=== PATIENT | female | born 1995 | race Caucasian/White ===

== ENCOUNTER 2021-07-25 17:24 | Emergency (ER) | payer BC ==
[~2021-07-25] VITALS: Ht 165.1 cm; Wt 72.6 kg
[2021-07-25] MEDS ORDERED: VENTOLIN HFA18 GM INH (18:22)
[2021-07-25] MEDS ORDERED: ONDANSETRON ODT4 MG PO (20:41)
== END 2021-07-25 21:05 | disposition home or self-care (01) ==
LOC: ED 17:24
DX: K92.0 Hematemesis (principal); J45.909 Unspecified asthma, uncomplicated
CPT/HCPCS: 36415; 43752; 80048; 85025; 85610; 85730; 99284-25; A9270; C9113; J2405; J7030

== ENCOUNTER 2021-08-03 13:20 | Emergency (ER) | payer BC ==
[~2021-08-03] VITALS: Ht 165.1 cm; Wt 80.7 kg
[~2021-08-03 13:20] MED LIST: ONDANSETRON ODT4 MG PO; VENTOLIN HFA18 GM INH
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
[2021-08-03] MEDS ORDERED: PROMETHAZINE HC25 M1 PO (13:48)
[2021-08-03] MEDS ORDERED: REGLAN10 MG PO (15:32)
[2021-08-03] MEDS ORDERED: PROMETHAZINE HC25 MG PR (15:32)
== END 2021-08-03 15:53 | disposition home or self-care (01) ==
LOC: ED 13:20
DX: O21.9 Vomiting of pregnancy, unspecified (principal); O99.511 Diseases of the respiratory system complicating pregnancy, first trimester; J45.909 Unspecified asthma, uncomplicated; Z3A.01 Less than 8 weeks gestation of pregnancy
CPT/HCPCS: 36415; 80053; 81001; 85025; 96374; 99284-25; J2765; J7030

== ENCOUNTER 2021-08-14 16:35 | Emergency (ER) | payer OTHER ==
[~2021-08-14] VITALS: Ht 165.1 cm; Wt 80.7 kg
[~2021-08-14 16:35] MED LIST changes: +PROMETHAZINE HC25 M1 PO; +PROMETHAZINE HC25 MG PR; +REGLAN10 MG PO
--- OUTSIDE RECORDS SUMMARY | 2021-08-14 16:42 | XMS ---
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 Soham has no Care Guidelines for this patient. Amol VISIT COUNT (12 MO.) 3 WILLIE QuirozRewCali Rosas M.C. TOTAL 4 NOTE: Visits indicate total known visits. ED/C VISIT TRACKING (12 MO.) 08/14/2021 16:36 WILLIE Dickinson [place] TYPE: Emergency COMPLAINT: - VOMITING 08/03/2021 13:21 WILLIE Dickinson [place] TYPE: Emergency COMPLAINT: - N/V DIAGNOSES: - Diseases of the respiratory system complicating , first trimester - Vomiting of , unspecified - Unspecified asthma, uncomplicated - Less than 8 weeks gestation of 07/25/2021 17:25 WILLIE Charles TYPE: Emergency COMPLAINT: - VOMITING BLOOD/ 6 [...] visits to display in this time frame [email or web address]
[2021-08-14] MEDS ORDERED: PROCHLORPERAZINE5 MG PO (18:28)
== END 2021-08-14 18:41 | disposition home or self-care (01) ==
LOC: ED 16:35
DX: O21.9 Vomiting of pregnancy, unspecified (principal); O99.511 Diseases of the respiratory system complicating pregnancy, first trimester; Z3A.10 10 weeks gestation of pregnancy; J45.909 Unspecified asthma, uncomplicated; Z79.899 Other long term (current) drug therapy
CPT/HCPCS: 36415; 80053; 81001; 85025; 96374; 99284-25; J0780; J7030

== ENCOUNTER 2022-02-17 09:28 | Inpatient (IN) | payer BC ==
[~2022-02-17 09:28] MED LIST changes: +PROCHLORPERAZINE5 MG PO
--- NOTE | 2022-02-17 11:43 | NUR ---
COVID SWAB COLLECTED SENT TO LAB
--- NOTE | 2022-02-17 13:17 | PR ---
[facility] [address] [place], [place] [address] Signed Progress Notes IP Datetime Report Generated by LILIAM: 02/17/2022 13:17 PROGRESS NOTES: [id number] Impression: Reassuring Heart Rate; Gest. HTN/PreEclampsia/Eclampsia Plan: Augmentation VITAL SIGNS: [id number] Vital Signs: Reviewed; Within Normal Limits EXAM: [id number] Dilatation: 2.0 Effacement: 0 Station: -3 Contractions: q2-4 min MEMBRANES: [id number] Membranes Status: Intact ROM Note: Amnisure neg. Pt may be discharged to home per Dr Calloway Comments: No cervical change. BP elevated but non-severe, headache persistent and consistent with migraines Plan: augmentation/ induction with cytotec. If WORSENING headache/ vision changes or sustained severe-range BP requiring antihypertensive therapy start MgSO4. Reviewed risks of pre-eclampsia and risks of prematurity with pt, who had FOB on speakerphone for conversation, all in agreement with plan. FETUS A: [id number] FHR Baseline: 130 Variability: Moderate 6-25bpm Accelerations: 15X15 Decelerations: None FHR Category: Category I Presentation: Vertex FETUS B: [id number] Signing Physician: Anastasia Rosario DO Copies: ~ *Electronically Signed* 02/17/22 3663 ANASTASIA ROSARIO DO PATIENT NAME: GLENIS GERBER PROGRESS NOTE DATE OF : [birth year] PHYSICIAN: ANASTASIA ROSARIO DO RPT #: [id number] REPORT IS CONFIDENTIAL AND NOT TO BE RELEASED WITHOUT AUTHORIZATION
--- NOTE | 2022-02-17 18:57 | PR ---
[facility] [address] [facility] [place] [address] Signed Progress Notes IP Datetime Report Generated by CPN: 02/17/2022 18:56 PROGRESS NOTES: [id number] Impression: Reassuring Heart Rate Procedures: Sterile Vag Exam Plan: Continue Present Management VITAL SIGNS: [id number] Vital Signs: Reviewed; Within Normal Limits EXAM: [id number] Dilatation: 3.5 Effacement: 60 Station: -2 Contractions: q2-4 min MEMBRANES: [id number] Membranes Status: Intact ROM Note: Amnisure neg. Pt may be discharged to home per Dr Calloway Comments: Getting more uncomfortable but has no director of child welfare services for her other children. I do feel she would be better off having her baby sooner rather than later given her dx of preeclampsia. She will discuss this further with her . FETUS A: [id number] FHR Baseline: 130 Variability: Moderate 6-25bpm Accelerations: 15X15 Decelerations: None FHR Category: Category I Presentation: Vertex FETUS B: [id number] Signing Physician: Jsoy Abreu MD Copies: ~ *Electronically Signed* 02/17/221855 JOSY ABREU MD PATIENT NAME: GLENIS GERBER PROGRESS NOTE DATE OF : 97 PHYSICIAN: JOSY ABREU MD RPT #: [id number] REPORT IS CONFIDENTIAL AND NOT TO BE RELEASED WITHOUT AUTHORIZATION
--- NOTE | 2022-02-17 21:12 | PR ---
[facility] [address] [place], [place] [address] Signed Progress Notes IP Datetime Report Generated by CPN: 02/17/2022 21:12 PROGRESS NOTES: [id number] Impression: Reassuring Heart Rate Procedures: Artificial ROM; Sterile Vag Exam Plan: Continue Present Management VITAL SIGNS: [id number] Vital Signs: Reviewed; Within Normal Limits EXAM: [id number] Dilatation: 4.0 Effacement: 60 Station: -2 Contractions: q2-4 min MEMBRANES: [id number] Membranes Status: Intact ROM Note: Amnisure neg. Pt may be discharged to home per Dr Calloway Comments: Not comfortable yet after epidural. Ramírez frequently though not much change in her cervix. Hopefully, contractions will space out and become stronger. Subq terb may be needed if fetus does not tolerate the contractions. FETUS A: [id number] FHR Baseline: 130 Variability: Moderate 6-25bpm Accelerations: 15X15 Decelerations: None FHR Category: Category I Presentation: Vertex FETUS B: [id number] Signing Physician: Josy Abreu MD Copies: ~ *Electronically Signed* 02/17/222111 JOSY ABREU MD PATIENT NAME: GLENIS GERBER PROGRESS NOTE DATE OF : 97 PHYSICIAN: JOSY ABREU MD RPT #: [id number] REPORT IS CONFIDENTIAL AND NOT TO BE RELEASED WITHOUT AUTHORIZATION
--- NOTE | 2022-02-17 21:43 | PR ---
[facility] [address] [facility] [place] [address] Signed Progress Notes IP Datetime Report Generated by LILIAM: 02/17/2022 21:43 PROGRESS NOTES: [id number] Impression: Normal Progression of Labor Procedures: Sterile Vag Exam Plan: Continue Present Management VITAL SIGNS: L0164667 Vital Signs: Reviewed; Within Normal Limits EXAM: [id number] Dilatation: 4.0 Effacement: 80 Station: -2 Contractions: q2-4 min MEMBRANES: [id number] Membranes Status: Intact ROM Note: Amnisure neg. Pt may be discharged to home per Dr Calloway Comments: Some increase in effacement but dilation unchanged. status reassuring at this time. Will continue close observation. FETUS A: [id number] FHR Baseline: 130 Variability: Moderate 6-25bpm Accelerations: 15X15 Decelerations: None FHR Category: Category I Presentation: Vertex FETUS B: [id number] Signing Physician: Josy Abreu MD Copies: ~ *Electronically Signed* 02/17/22 2143 JOSY ABREU MD PATIENT NAME: GLENIS GERBER PROGRESS NOTE DATE OF : 97 PHYSICIAN: JOSY ABREU MD RPT #: [id number] REPORT IS CONFIDENTIAL AND NOT TO BE RELEASED WITHOUT AUTHORIZATION
--- NOTE | 2022-02-17 22:36 | PR ---
[facility] [address] [facility] [place] [place] [address] Signed Progress Notes IP Datetime Report Generated by LILIAM: 02/17/2022 22:36 PROGRESS NOTES: [id number] Impression: Non-reassuring Heart Rate Procedures: Intrauterine Pressure Catheter; Scalp Electrode Other Procedures: subQ terb Plan: Continue Present Management VITAL SIGNS: [id number] Vital Signs: Reviewed; Within Normal Limits EXAM: [id number] Dilatation: 4.0 Effacement: 80 Station: -2 Contractions: q2-4 min MEMBRANES: [id number] Membranes Status: Intact ROM Note: Amnisure neg. Pt may be discharged to home per Dr Calloway Comments: status improved currently with multiple maneuvers. Suspect relative hypotension contributed initially. If the severe variables do not improve with maneuvers, C/S may be needed. Will continue close observation. FETUS A: [id number] FHR Baseline: 130 Variability: Moderate 6-25bpm Accelerations: 15X15 Decelerations: None FHR Category: Category I Presentation: Vertex FETUS B: [id number] Signing Physician: Josy Abreu MD Copies: ~ *Electronically Signed* 02/17/222235 JOSY ABREU MD PATIENT NAME: GLENIS GERBER PROGRESS NOTE DATE OF : 97 PHYSICIAN: JOSY ABREU MD RPT #: [id number] REPORT IS CONFIDENTIAL AND NOT TO BE RELEASED WITHOUT AUTHORIZATION
--- NOTE | 2022-02-18 00:18 | NUR ---
02/18/22 0018 Chen Rojas 0010 PATIENT INTO PACU. PATIENT NON REACTIVE. PATIENT BREATHING EQUAL AND UNLABORED. OPA IN PLACE. MASK ON AT 6 LITERS. OXYGEN SATURATIONS ABOVE 95%. FUNDAL CHECKS COMPLETE. IVF INFUSING. THIS RN AT BEDSIDE.
--- NOTE | 2022-02-18 10:57 | PR ---
[facility] [address] [facility] [place], [place] [address] Signed PP Progress Notes Datetime Report Generated by CPN: 02/18/2022 10:57 SUBJECTIVE: [id number] Pain: Within Normal Limits Nausea/Vomiting: Denies Flatus: Yes Vital Signs: U1645524 Vital Signs: Reviewed Notable Details: worsening BPs Cardiovascular: Normal Respiratory: Normal Abdomen/Uterus: Abnormal Lochia: Normal Vulva/Perineum: Not Done Breasts: Not Done CVA Tenderness: Not Done Extremities: Normal Incision: Normal Progress: Abnormal Exam Comments: Abdomen with active BS. Fundus firm, NT @ U-2. H/H 11.6/34.2, WBC 15.2, plat 156k IMPRESSION/PLAN/PROCEDURES: [id number] Impression: Induced Hypertension Other Plans: mag sulfate Progress Notes: Pain manageable. SCHULER improved. BPs, however, are intermittently severe and mostly just below this. I think she would benefit from beginning mag sulfate. This is discussed with patient and she agrees with plan. She did speak to NICU nurse and her son is doing well and has been weaned off O2 and CPAP. Signing Physician: Josy Abreu MD Copies: ~ *Electronically Signed* 02/18/22 1050 JOSY ABREU MD PATIENT NAME: GLENIS GERBER PROGRESS NOTE DATE OF : 97 PHYSICIAN: JOSY ABREU MD RPT #: [id number] REPORT IS CONFIDENTIAL AND NOT TO BE RELEASED WITHOUT AUTHORIZATION
--- NOTE | 2022-02-19 04:19 | OR ---
[facility] [address] [place], [place] [address] Signed DATE OF OPERATION: 02/17/2022 SURGEON: Josy Abreu MD PUBLIC WORKS TECHNICIAN: Anastasia Rosario DO PREOPERATIVE DIAGNOSIS: intolerance to labor, preeclampsia with severe features, persistent OP. POSTOPERATIVE DIAGNOSIS: intolerance to labor, preeclampsia with severe features, persistent OP, placental abruption. ANESTHESIA: General ET. ESTIMATED BLOOD LOSS: 700 mL. DRAINS: Acuña catheter. PROCEDURE: Primary section with low segment transverse uterine incision. INDICATIONS AND FINDINGS: The patient is a 26-year-old female, 4, para 2, SAB 1, who was admitted at 36 and 4/7th weeks for induction because of preeclampsia with severe features. The patient initially had severe range blood pressures though these did improve. She also had a headache with visual changes. She received Cytotec x1. She did progress to 3 cm with this and heart tones were very reassuring. She underwent an epidural and artificial rupture of membranes was carried out with clear fluid seen. However, not too long afterward she developed a prolonged deceleration and recurrent variables. Some improvement was noted with position changes as well as subcu terbutaline. Scalp clip and IUPC were placed during this time as well. An amnioinfusion was begun because of the recurrent decels. However, despite all of these maneuvers and even a 2nd dose of terbutaline, the status did not improve and it was felt that was needed. She was only 4 cm at this point and delivery was not expected any time soon. Because of this, she was counseled and consented for a primary section. She was taken Electronically Signed By: JOSY ABREU MD 02/19/22 0419 PATIENT NAME: GLENIS GERBER OPERATIVE REPORT DATE OF : 97 REPORT #: [id number] PHYSICIAN: JOSY ABREU MD PCP: NO PRIMARY CARE PHYSICIAN REPORT IS CONFIDENTIAL AND NOT TO BE RELEASED WITHOUT AUTHORIZATION [facility] [address] [place], [place] [address] Signed the operating room where she was delivered under a general anesthetic of a little boy from the ROP position via lower segment transverse uterine incision. There was a loop of cord at the neck. There was a moderate amount of blood clot on entering the uterus. The uterus, tubes, and ovaries otherwise appeared normal. DESCRIPTION OF PROCEDURE: The patient was prepped and draped in the supine position. A Pfannenstiel skin incision was made and carried down to the fascia. The incision was extended laterally. The inferior and superior fascial flaps were created. The muscles were bluntly divided and the peritoneum opened bluntly and the incision extended. The Gene retractor was placed. Uterine incision was made at the upper aspect of the peritoneal reflection and the baby delivered with the above findings and handed off to the pediatric staff in attendance. The placenta was removed manually and the uterus explored with a lap tape assuring no remaining fragments. The edges of the incision were identified and the uterus was closed in 2 layers using 0 Monocryl. The first layer was a running locking stitch and the second was a vertical imbricating stitch. An additional suture was required near the left midportion for her control of bleeding. Following this, the abdomen was copiously irrigated and inspected and bleeding points were controlled with cautery. The area did appear hemostatic, but there was quite a large raw area. Because of this, Enoc was sprinkled over this lower segment to aid in hemostasis. The retractor was removed. The peritoneum identified. The peritoneum was closed with a running suture of 3-0 Vicryl. The muscles were brought together with interrupted sutures of 0 Vicryl. Bleeding points on the muscle were controlled with cautery. The perforators were also controlled with cautery. There was one area on the right superior fascial flap which continued to have some bleeding and a [id number] suture of 0 Vicryl was placed with good hemostasis with these perforators. Following this, this layer was irrigated and inspected and good hemostasis was noted. The remaining Enoc was sprinkled over the muscles to aid further in hemostasis. The fascia was closed from each angle to the midline with a running suture of 0 Vicryl. The subcu layer was irrigated and bleeding points controlled with cautery. The skin edges were reapproximated with 3-0 Vicryl. The skin was closed with edilia. All sponge and needle counts were correct. She tolerated procedure well and was taken to the recovery room in good condition. Josy Abreu MD PJW/MODL /[id number] Electronically Signed By: JOSY ABREU MD 02/19/22 0419 PATIENT NAME: GLENIS GERBER OPERATIVE REPORT DATE OF : 97 REPORT #: [id number] PHYSICIAN: JOSY ABREU MD PCP: NO PRIMARY CARE PHYSICIAN REPORT IS CONFIDENTIAL AND NOT TO BE RELEASED WITHOUT AUTHORIZATION [facility] [address] [place] [address] Signed cc: DO Carlos De La Rosa MD Copies: ANASTASIA ROSARIO MICHAEL JOHN MD ~ Electronically Signed By: JOSY ABREU MD 02/19/22 0419 PATIENT NAME: GLENIS GERBER SUMA OPERATIVE REPORT DATE OF : 97 REPORT #: [id number] PHYSICIAN: JOSY ABREU MD PCP: NO PRIMARY CARE PHYSICIAN REPORT IS CONFIDENTIAL AND NOT TO BE RELEASED WITHOUT AUTHORIZATION
--- NOTE | 2022-02-19 08:02 | PR ---
[facility] [address] [facility] [place], [place] [address] Signed PP Progress Notes Datetime Report Generated by CPN: 02/19/2022 08:01 SUBJECTIVE: [id number] Pain: Within Normal Limits Nausea/Vomiting: Denies Flatus: Yes Vital Signs: [id number] Vital Signs: Reviewed Notable Details: HTN--not severe EXAM: Ongoing Cardiovascular: Not Done Respiratory: Not Done Abdomen/Uterus: Abnormal Lochia: Normal Vulva/Perineum: Not Done Breasts: Not Done CVA Tenderness: Not Done Extremities: Normal Incision: Normal Progress: Abnormal Exam Comments: Fundus firm, NT @ U-2. H/H 10.4/31.4, WBC 12.5, plat 140k Mag 5.8 this am IMPRESSION/PLAN/PROCEDURES: [id number] Impression: Normal Progression; Induced Hypertension Other Plans: stop mag, shower Progress Notes: BPs better though not normal. I do think she be off mag and continue observation. She will probably be ready for D/C in am. Signing Physician: Josy Abreu MD Copies: ~ *Electronically Signed* 02/19/22800 JOSY ABREU MD PATIENT NAME: GLENIS GERBER PROGRESS NOTE DATE OF : 97 PHYSICIAN: JOSY ABREU MD RPT #: [id number] REPORT IS CONFIDENTIAL AND NOT TO BE RELEASED WITHOUT AUTHORIZATION
--- NOTE | 2022-02-20 08:42 | PR ---
[facility] [address] [facility] [place], [place] [address] Signed PP Progress Notes Datetime Report Generated by CPN: 02/20/2022 08:42 SUBJECTIVE: [id number] Pain: Within Normal Limits Pain Comments: did get some sleep last night Nausea/Vomiting: Denies Flatus: Yes Vital Signs: M1010258 Vital Signs: Reviewed Notable Details: HTN--not severe EXAM: Ongoing Cardiovascular: Normal Respiratory: Normal Abdomen/Uterus: Abnormal Lochia: Normal Vulva/Perineum: Not Done Breasts: Not Done CVA Tenderness: Not Done Extremities: Normal Incision: Normal Progress: Abnormal Exam Comments: Abdomen with active BS. Fundus firm, NT @ U-2. IMPRESSION/PLAN/PROCEDURES: [id number] Impression: Normal Progression; Induced Hypertension Plan: Remove Serge; Discharge Other Plans: stop mag, shower Progress Notes: Doing well. I think she is ready for D/C but will need close f/u for her BP. Signing Physician: Josy Abreu MD Copies: ~ *Electronically Signed* 02/20/22 0842 JOSY ABREU MD PATIENT NAME: GLENIS GERBER PROGRESS NOTE DATE OF : 97 PHYSICIAN: JOSY ABREU MD RPT #: [id number] REPORT IS CONFIDENTIAL AND NOT TO BE RELEASED WITHOUT AUTHORIZATION
--- NOTE | 2022-02-21 12:59 | PATH ---
[facility] [address] [place], [place] [address] Signed SPECIMEN(S): A PLACENTA, 3RD TRIMESTER SPECIMEN SOURCE: A. PLACENTA, 3RD TRIMESTER CLINICAL HISTORY: Mother's age: 26. OB history: A1 (spontaneous). score: 8. Specific issues of concern: Placental abruption. FINAL PATHOLOGIC DIAGNOSIS: Placenta, third trimester: - Mature 489 gram placenta with three-vessel umbilical cord. - Negative for chorioamnionitis or funisitis. 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 - Focal villous and perivillous fibrin deposition and calcification. JVR:[facility]:C2NR MICROSCOPIC EXAMINATION: Histologic sections of all submitted blocks are examined by light microscopy. These findings, together with the gross examination, support the pathologic diagnosis. GROSS DESCRIPTION: The specimen, labeled "S, S, A," is received in formalin and consists of a garcia discoid placenta with the following parameters: Umbilical cord: Insertion eccentric, measurement 11 cm in length and 1.5 cm in diameter; trivascular. Cord coiling index (per 10 cm): Two. Lesions: None gross identified. Membranes: Insertion site: Marginal, palmer translucent, rupture site 5 cm away from margin. Intact. Other: None. Chorionic Plate: Normal radiating vascular pattern, blue purple and shiny. Lesions: None gross identified. Other: None. Maternal Surface: Normal cotyledons, intact. Lesions: With focal fibrin deposits on surface. Measurement: 19 x 17 x 2.7 cm. Weight (trimmed): 488.8 grams. Cut Surface: Maroon and spongy. Lesions: Multiple infarcts ranging from 0.7-3 cm in greatest dimension. Basal plate fibrin 0.1 cm in thickness. Other Findings: none Cassette Summary: (A1) Membranes and umbilical cord (A2) Placenta full thickness with infarct PATIENT NAME: GLENIS GERBER PATHOLOGY DATE OF : [birth year] REPORT #: [id number] PHYSICIAN: LEANN PATHOLOGY PCP: NO PRIMARY CARE PHYSICIAN REPORT IS CONFIDENTIAL AND NOT TO BE RELEASED WITHOUT AUTHORIZATION [facility] [address] [place], [place] [address] Signed (A3) Placenta full thickness with infarct (A4) Placenta parenchyma full-thickness, bisected KV (under the direct supervision of a pathologist) The Gross Description was prepared using a voice recognition system. The report was reviewed for accuracy; however, sound-alike word errors, addition and/or deletions may occur. If there is any question about this report, please contact Client Services. PERFORMING LABORATORY: The technical component was performed by [facility], [address] [place] [address] (CLIA# [id number]). Professional interpretation was performed by [facility], [address] [place] [id number] (CLIA#: [id number]). Diagnostician: Lui Bai MD Pathologist Electronically Signed 02/21/2022 Copies: ~ PATIENT NAME: GLENIS GERBER PATHOLOGY DATE OF : [birth year] REPORT #: [id number] PHYSICIAN: LEANN PATHOLOGY PCP: NO PRIMARY CARE PHYSICIAN REPORT IS CONFIDENTIAL AND NOT TO BE RELEASED WITHOUT AUTHORIZATION
== END 2022-02-20 10:35 | disposition home or self-care (01) | DRG 788 ==
LOC: FBCO 09:28 → FBC 10:55
PROVIDERS: ADMIT Obstetrics & Gynecology; ATTEND Obstetrics & Gynecology
PROC: 10H07YZ Insertion of Other Device into Products of Conception, Via Natural or Artificial Opening (ICD-10-PCS; 2022-02-17)
PROC: 10D00Z1 Extraction of Products of Conception, Low, Open Approach (ICD-10-PCS; principal; 2022-02-17 22:50)
DX: O14.14 Severe pre-eclampsia complicating childbirth (principal); O45.93 Premature separation of placenta, unspecified, third trimester; Z20.822 Contact with and (suspected) exposure to COVID-19; Z37.0 Single live birth; O76 Abnormality in fetal heart rate and rhythm complicating labor and delivery; O13.4 Gestational [pregnancy-induced] hypertension without significant proteinuria, complicating childbirth; O69.1XX0 Labor and delivery complicated by cord around neck, with compression, not applicable or unspecified; O99.52 Diseases of the respiratory system complicating childbirth; J45.909 Unspecified asthma, uncomplicated; Z79.899 Other long term (current) drug therapy; Z79.51 Long term (current) use of inhaled steroids; Z98.890 Other specified postprocedural states; Z3A.36 36 weeks gestation of pregnancy
CPT/HCPCS: 01961; 36415; 59025; 74018; 80053; 82570; 82803; 83615; 83735; 84156; 84550; 85025; 85027; 86850; 86900; 86901; 87502; A9270; C9803; G0463; J0131; J0330; J0456; J0690; J1100; J1170; J1644; J1885; J2250; J2274; J2405; J2590; J2704; J2795; J3010; J3105; J3475; J7121; U0003

== ENCOUNTER 2022-06-10 10:17 | Emergency (ER) | payer BC ==
[~2022-06-10] VITALS: Ht 165.1 cm; Wt 80.7 kg
[2022-06-10] MEDS ORDERED: PREDNISONE20 MG PO (10:41)
[2022-06-10] MEDS ORDERED: VENTOLIN HFA18 GM INH (10:41)
== END 2022-06-10 11:19 | disposition home or self-care (01) ==
LOC: ED 10:17
DX: U07.1 COVID-19 (principal); J45.901 Unspecified asthma with (acute) exacerbation
CPT/HCPCS: 71046; 94640; 94664; 99284-25; J7512

== ENCOUNTER 2023-10-16 05:26 | Day surgery (SDC) | payer BC ==
[2023-10-09 13:30] VITALS: BP 118/77
[~2023-10-16] VITALS: Ht 165.1 cm; Wt 81.8 kg
[~2023-10-16 05:26] MED LIST changes: +AMOX TR-K CLV1 EAC1 PO; +HYDROCODON-ACE1 EA10 PO; +LACTATED RINGER'S 1,000 ML IV SCH; +PREDNISONE20 MG PO
[2023-10-16 05:58] VITALS: BP 111/70
[2023-10-16] MEDS ORDERED: LIDOCAINE HCL 4% 5 ML AMP ONE (06:39)
[2023-10-16] MEDS ORDERED: LACTATED RINGER'S 1,000 ML IV ONE (06:39)
[2023-10-16] MEDS ORDERED: ondansetron HCL 4 MG/2 ML VIAL ONE ×2 (06:39→08:21)
[2023-10-16] MEDS ORDERED: METOCLOPRAMIDE HCL 10 MG/2 ML SDV ONE (06:39)
[2023-10-16] MEDS ORDERED: KETOROLAC TROMETHAMINE 30 MG/ML VIAL ONE (06:39)
[2023-10-16] MEDS ORDERED: fentaNYL citrate 100 MCG/2 ML VIAL ONE (06:39)
[2023-10-16] MEDS ORDERED: ROCURONIUM BROMIDE 50 MG/5 ML SYR ONE (06:39)
[2023-10-16] MEDS ORDERED: DEXAMETHASONE SOD PHOS 4 MG/ML VIAL ONE (06:39)
[2023-10-16] MEDS ORDERED: SUGAMMADEX SODIUM 200 MG/2 ML ML ONE (06:39)
[2023-10-16] MEDS ORDERED: MIDAZOLAM HCL 2 MG/2 ML VIAL ONE (06:39)
[2023-10-16] MEDS ORDERED: FAMOTIDINE 20 MG/ 2 ML VIAL ONE (06:39)
[2023-10-16] MEDS ORDERED: propofoL 200 MG/20 ML VIAL ONE (06:39)
[2023-10-16] MEDS ORDERED: SUCCINYLCHOLINE IN 0.9% NACL 200 MG/10 ML SYRINGE ONE (06:39)
[2023-10-16] MEDS ORDERED: IBLOOD GLUCOSE TEST STRIP 1 EA TEST VI PRN ×2 (07:00→08:30)
[2023-10-16] MEDS ORDERED: LIDOCAINE HCL 1% 5 ML SDV INJ ONE (07:00)
[2023-10-16] MEDS ORDERED: dexmedeTOMIDine HCl 200 MCG/2 ML VIAL ONE (07:23)
[2023-10-16] MEDS ORDERED: ondansetron HCL 4 MG/2 ML VIAL IV PRN ×2 (08:00→08:30)
[2023-10-16] MEDS ORDERED: NALOXONE HCL 0.4 MG SYR IV PRN ×2 (08:00→08:30)
[2023-10-16] MEDS ORDERED: SIMETHICONE 125 MG TABLET CHEWABLE PO PRN (08:00)
[2023-10-16] MEDS ORDERED: MORPHINE SULFATE 10 MG/ML VIAL IV PRN ×2 (08:00→08:30)
[2023-10-16] MEDS ORDERED: OXYCODONE/APAP 5/325 TAB PO PRN (08:00)
[2023-10-16] MEDS ORDERED: METOCLOPRAMIDE HCL 10 MG/2 ML SDV IV PRN ×2 (08:00→08:30)
[2023-10-16] MEDS ORDERED: FAMOTIDINE 20 MG/ 2 ML VIAL IV PRN (08:00)
[2023-10-16] MEDS ORDERED: fentaNYL citrate 50 MCG/ML SDV IV PRN (08:30)
[2023-10-16] MEDS ORDERED: droPERidol 5 MG/2 ML VIAL IV PRN (08:30)
[2023-10-16] MEDS ORDERED: PROCHLORPERAZINE EDISYLATE 10 MG/2 ML VIAL IV PRN (08:30)
--- NOTE | 2023-10-16 08:37 | NUR ---
10/16/23 0837 [place] 0801 PT ARRIVES TO THE PACU WITH A CHIN LIFT AND ON 10L VIA MASK. PT UNAROUSABLE WITH STIMULI. RESP EVEN AND UNLABORED BUT SHALLOW.
--- NOTE | 2023-10-16 08:50 | NUR ---
PT ARRIVES TO DS FROM PACU VIA STRETCHER. PT IS A&O AND ANSWERING QUESTIONS APPROPRIATELY. PT REPORTS PAIN IS UNCOMFORTABLE, BUT TOLERABLE AT 2 OR 3/10 FOR PAIN. DRESSING VISUALIZED WITH RENAE CANDELARIO, DRESSING IS C/D/I, NO SIGNS OF BLEEDING AT THIS TIME. PP AND MESH UNDERWEAR IN PLACE. PT STATES NO NEED FOR PRN PAIN MED AT THIS TIME. WARM BLANKET, ICE WATER, JELLO PROVIDED. CALL LIGHT WITHIN REACH. PT 100% O2 ON RA, VIA PULSE OX. RESPIRATIONS EVEN AND UNLABORED. PT REPORTS NO FURTHER QUESTIONS OR NEEDS AT THIS TIME.
[2023-10-16 08:55] VITALS: BP 112/84
--- NOTE | 2023-10-16 09:45 | NUR ---
IN PT ROOM D/T ANSWERED CALL LIGHT. PT STATES NEED TO URINE VOID AT THIS TIME. PT SITS AT BEDSIDE, PT REPORTS NO DIZZINESS OR NAUSEA AT THIS TIME. PT AMBULATES TO RESTROOM W/THIS RN STANDBY ASSIST. PT URINE VOIDS 100 ML OF CLEAR/YELLOW URINE. PT BACK TO BED AND WARM BLANKETS PROVIDED. PRN PAIN MED GIVEN AT THIS TIME (SEE EMAR). PT STATES PAIN REMAINS TOLERABLE, BUT MOMENTS OF INCREASING PAIN. NO ACUTE CHANGES FROM PREVIOUS DRESSING CHANGE. CALL LIGHT WITHIN REACH, PT STATES NO FURTHER NEEDS OR QUESTIONS AT THIS TIME.
[2023-10-16 09:49] VITALS: BP 114/74
--- NOTE | 2023-10-16 10:28 | NUR ---
IN PT ROOM FOR ASSESSMENT. PT REPORTS PAIN HAS IMPROVED AND SHE IS READY TO GO HOME. PT GETTING DRESSED AT THIS TIME. PT ENCOURAGED TO SUPPORT ABDOMEN W/PILLOW OR BLANKET AND AVOID EXCESSIVE BENDING OVER, PT STATES VERBAL UNDERSTANDING. GRANDFATHER CALLED TO PULL TO FRONT FOR RIDE. CALL LIGHT WITHINR REACH, PT STATES NO FURTHER NEEDS AT THIS TIME.
--- NOTE | 2023-10-16 10:38 | OR ---
[facility] [address] [place], [place] [address] Signed DATE OF OPERATION: 10/16/2023 SURGEON: Colby Calloway DO PREOPERATIVE DIAGNOSIS: At risk for ovarian cancer. POSTOPERATIVE DIAGNOSIS: At risk for ovarian cancer. PROCEDURE PERFORMED: Laparoscopic bilateral salpingectomy. HORSE RACING MANAGER: None. ANESTHESIA: General. ESTIMATED BLOOD LOSS: 5 mL. SPECIMENS: Bilateral fallopian tubes. COMPLICATIONS: None. FINDINGS: Normal right upper quadrant, left upper quadrant, uterus, tubes, and ovaries. No significant adhesions from prior deliveries and no evidence of endometriosis or other pelvic pathology. INDICATIONS: Ms. Gerber is a very pleasant 28-year-old female, who presents requesting bilateral salpingectomy. Reviewed risks, benefits, and alternatives. Discussed that salpingectomy performed at [facility] is primarily for ovarian cancer risk reduction and that sterilization is a secondary consequence. The patient understands and wishes to proceed with the procedure. Electronically Signed By: COLBY CALLOWAY DO (JD) 10/16/23 1038 PATIENT NAME: GLENIS GERBER OPERATIVE REPORT DATE OF : [birth year] REPORT #: [id number] PHYSICIAN: COLBY CALLOWAY DO (JD) PCP: NOE HERNANDEZ PAC REPORT IS CONFIDENTIAL AND NOT TO BE RELEASED WITHOUT AUTHORIZATION [facility] [address] [place] [id number] Signed DESCRIPTION OF PROCEDURE: The patient was taken to the OR where time-out was performed to confirm correct patient and correct procedure. General anesthesia was adequately established. The patient was prepped and draped in the dorsal lithotomy position with her feet in Yellofin stirrups. No preoperative antibiotics or heparin was indicated. Acuña catheter was inserted. The cervix was grasped with an Allis clamp and the cervix was noted to be dilated. Hulka uterine manipulator was placed without difficulty and the surgeon's gloves were changed and attention was turned to the abdomen. The base of the umbilicus was infiltrated with 0.25% Marcaine with epinephrine. A 5 mm stab incision was made and a 5 mm port was placed under direct visualization without complication. Low opening pressures were noted with establishment of pneumoperitoneum. Survey of the abdomen and pelvis was performed demonstrating normal upper quadrants, bowel and pelvis. 5 mm assist port was placed in the right and left lower quadrant under direct visualization after infiltration with 0.25% Marcaine with epinephrine. Careful evaluation of the pelvis was then performed demonstrating no endometriosis or other pelvic pathology. The patient has minimal to no scarring over the lower uterine segment from her prior deliveries. The right fallopian tube was grasped at the fimbriated end and divided along the mesosalpinx with excellent hemostasis using LigaSure device. The tube was delivered through the operative port and sent to pathology for further evaluation. The left fallopian tube was dissected along the mesosalpinx using LigaSure device and also amputated at the cornu. Excellent hemostasis was appreciated. Pneumoperitoneum was reduced. Trocars were removed and trocar sites repaired with 4-0 Vicryl Rapide. The Acuña catheter was removed and the Hulka uterine manipulator was removed. The patient was then taken to PACU in good and stable condition. Sponge, needle and instrument count was correct x2 at the end of the procedure. Colby Fish Calloway, DO JDW/MODL /[id number] Electronically Signed By: COLBY PAUL) CALLOWAY, DO 10/16/23 1038 PATIENT NAME: GLENIS GERBER OPERATIVE REPORT DATE OF : [birth year] REPORT #: [id number] PHYSICIAN: COLBY CALLOWAY DO (JD) PCP: NOE HERNANDEZ PAC REPORT IS CONFIDENTIAL AND NOT TO BE RELEASED WITHOUT AUTHORIZATION [facility] [address] [facility] [place] [address] Signed Copies: ~ Electronically Signed By: BOWMAN (JD) CALLOWAY, DO 10/16/23 1038 PATIENT NAME: GLENIS GERBER OPERATIVE REPORT DATE OF : [birth year] REPORT #: [id number] PHYSICIAN: COLBY CALLOWAY (HECTOR) PCP: NOE HERNANDEZ PAC REPORT IS CONFIDENTIAL AND NOT TO BE RELEASED WITHOUT AUTHORIZATION
[2023-10-16 10:45] VITALS: BP 113/69
--- NOTE | 2023-10-16 10:50 | NUR ---
DISCHARGE EDUCATION PROVIDED AT THIS TIME, PT STATES VERBAL UNDERSTANDING AND NO FURTHER QUESTIONS OR NEEDS AT THIS TIME. IV DC'ED, WNL, CATH TIP INTACT, GAUZE/COBAN IN PLACE. PT OFF OF UNIT VIA WC TO PASSENGER SIDE OF GRANDFATHER'S VEHICLE. ALL BELONGINGS IN PT POSSESSION AT THIS TIME. PT REPORTS NO FURTHER NEEDS OR QUESTIONS.
--- NOTE | 2023-10-23 18:03 | PATH ---
[facility] [place] [facility] [address] [place], [place] [address] Signed SPECIMEN(S): A FALLOPIAN TUBES SPECIMEN SOURCE: A. FALLOPIAN TUBES CLINICAL HISTORY: Prophylactic for risk factor related to malignant neoplasm of ovary. FINAL PATHOLOGIC DIAGNOSIS: Segments of right and left fallopian tubes, salpingectomy: - Benign fallopian tube tissue, completely transected. - No malignancy identified. COMMENT: Stains are performed on block A1 P53. 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 Ki-67: Less than 2%. Block A2: P53: Wild type. The case is signed out in Dr De La O's absence. MICROSCOPIC EXAMINATION: Histologic sections of all submitted blocks are examined by light microscopy. These findings, together with the gross examination, support the pathologic diagnosis. Immunohistochemical stains performed and reviewed: Block A1 (undesignated tube, no ink): - p53: Microscopic focus, consisting of approximately 45 cells, with strong nuclear p53 staining. Remainder of tubal epithelium shows a weak, wild-type staining pattern. - Ki67: Pending Block A2 (undesignated tube, blue ink): - p53: Tubal epithelium shows a weak, wild-type staining pattern. SDL GROSS DESCRIPTION: The specimen, labeled and designated "[place], " and designated on the requisition "bilateral fallopian tubes," is received in formalin and consists of two undesignated fallopian tubes that measure 6.9 x 1.1 cm and 8.6 x 1.2 cm. The serosal surfaces are violaceous and smooth PATIENT NAME: GLENIS GERBER PATHOLOGY DATE OF : [birth year] REPORT #: [id number] PHYSICIAN: LEANN WILLIAM PCP: NOE HERNANDEZ PAC REPORT IS CONFIDENTIAL AND NOT TO BE RELEASED WITHOUT AUTHORIZATION [facility] [place] [facility] [address] [place], [place] [address] Signed with delicate fimbriae. One tube is arbitrarily inked. Fimbriae are entirely submitted. Cinder Crew Worker sections are submitted in (A1-A2). FB (under the direct supervision of a pathologist) The Gross Description was prepared using a voice recognition system. The report was reviewed for accuracy; however, sound-alike word errors, addition and/or deletions may occur. If there is any question about this report, please contact Client Services. ADDITIONAL NOTES: Immunohistochemical and/or in situ hybridization studies if performed in this case included appropriate positive controls that reacted as expected. This test was developed and its performance characteristics determined by [facility]. It has not been cleared or approved by the U.S. Food and Drug Administration. The FDA has determined that such clearance or approval is not necessary. This test is used for clinical purposes. It should not be regarded as investigational or for research. [facility] is certified under the Clinical Laboratory Improvement Amendments of 1988 (CLIA) as qualified to perform high complexity clinical laboratory testing. PERFORMING LABORATORY: Technical component was performed by [facility], [address] [place] [id number] (CLIA# [id number]). Professional interpretation was performed by [facility], [address] [place] [id number] (CLIA#: [id number]). Diagnostician: Diego Conteh MD Pathologist Electronically Signed 10/23/2023 Copies: ~ PATIENT NAME: GLENIS GERBER PATHOLOGY DATE OF : [birth year] REPORT #: [id number] PHYSICIAN: LEANN WILLIAM PCP: NOE HERNANDEZ PAC REPORT IS CONFIDENTIAL AND NOT TO BE RELEASED WITHOUT AUTHORIZATION
== END 2023-10-16 10:50 | disposition home or self-care (01) ==
LOC: DS 05:26 → OPS 05:26 → DS 07:30 → OPS 09:00 → DS 09:00 → OPS 10:50
PROVIDERS: ATTEND Obstetrics & Gynecology
PROC: 0UT74ZZ Resection of Bilateral Fallopian Tubes, Percutaneous Endoscopic Approach (ICD-10-PCS; principal; 2023-10-16 07:30)
DX: Z40.03 Encounter for prophylactic removal of fallopian tube(s) (principal); J45.909 Unspecified asthma, uncomplicated; Z79.899 Other long term (current) drug therapy
CPT/HCPCS: 00840; J0330; J1100; J1885; J2250; J2405; J2704; J2765; J3010; J3490; J7121

== ENCOUNTER 2023-10-16 23:34 | Emergency (ER) | payer BC ==
[~2023-10-16 23:34] MED LIST changes: -LACTATED RINGER'S 1,000 ML IV SCH
[2023-10-17 00:05] VITALS: BP 117/76
== END 2023-10-17 00:07 | disposition home or self-care (01) ==
LOC: ED 23:34
DX: Z48.816 Encounter for surgical aftercare following surgery on the genitourinary system (principal); J45.909 Unspecified asthma, uncomplicated
CPT/HCPCS: 99283

== ENCOUNTER 2024-08-30 00:30 | Emergency (ER) | payer BC ==
[~2024-08-30] VITALS: Ht 165.1 cm; Wt 86.5 kg
[2024-08-30] MEDS ORDERED: droPERidol 5 MG/2 ML VIAL IV ONE (00:45)
[2024-08-30] MEDS ORDERED: SODIUM CHLORIDE 0.9% 1,000 ML IV ONE ×2 (00:45→01:15)
[2024-08-30 01:02] LABS: ALBUMIN 4.1 g/dL (3.4-5.0); ALBUMIN/GLOBULIN RATIO 1.21 (1.1-2.4); ANION GAP 19.3 (7-21); BILIRUBIN, TOTAL 0.3 mg/dL (0.2-1.0); BUN/CREATININE RATIO 20.68 (6.0-28.6); CALCIUM 9.1 mg/dL (8.5-10.1); CREATININE, SERUM 0.87 mg/dL (0.55-1.02); MAGNESIUM 1.9 mg/dL (1.8-2.4); POTASSIUM 3.3 mmol/L (3.5-5.1); PROTEIN, TOTAL 7.5 g/dL (6.4-8.2)
[2024-08-30 01:07] LABS: BASOPHILS 0.3 % (0-2); EOSINOPHILS 1.4 % (0-6); HEMATOCRIT 40.5 % (35.0-50.0); HEMOGLOBIN 14.5 g/dL (12.0-18.0); LYMPHOCYTES 26.9 % (24-44); MCH 28.8 (27-36); MCHC 35.9 g/dl (30-36); MCV 80.1 fl (81-99); MONOCYTES 6.2 % (0-12); NEUTROPHILS 65.2 % (39-80); PLATELET COUNT 258 K/uL (140-440); RBC 5.05 M/ul (4.3-5.7); RDW 12.9 (10.5-15.0)
[2024-08-30] MEDS ORDERED: ONDANSETRON 4 MG HOME.PACK SL ONE (01:15)
[2024-08-30] MEDS ORDERED: PROMETHAZINE HCL 25 MG SUPP. HOME.PACK PR ONE (01:15)
[2024-08-30 02:34] VITALS: BP 116/77
== END 2024-08-30 04:00 | disposition home or self-care (01) ==
LOC: ED 00:30
PROVIDERS: Family Medicine
DX: F10.929 Alcohol use, unspecified with intoxication, unspecified (principal); J45.909 Unspecified asthma, uncomplicated
CPT/HCPCS: 36415; 80053; 83735; 85025; 96374; 99284-25; J1790; J7030